=== PATIENT | female | born 1990 | race Caucasian/White ===

== ENCOUNTER → 2023-10-20 20:21 | Outpatient (REF) | payer BC, SELFPAY | LOC: MRI 3T 20:21 | PROVIDERS: ATTENDING PHYSICIAN Chiropractor; FAMILY PHYSICIAN Family Medicine | DX: S83.242A Other tear of medial meniscus, current injury, left knee, initial encounter (principal) | CPT/HCPCS: 73721 ==

== ENCOUNTER 2023-12-04 06:19 | Day surgery (SDC) | payer BC, SELFPAY ==
[2023-12-04] VITALS (10 sets, daily range): BP systolic 110–119; BP diastolic 55–71; BMI 28.7
[2023-12-04] MEDS: TYLENOL 1000 MG PO (11:40)
[2023-12-04] MEDS: CELEBREX 200 MG PO (11:40)
[2023-12-04] MEDS: NORMOSOL-R 1000 IV (11:43)
[2023-12-04] MEDS: DILAUDID 0.25 MG IV (14:20)
== END 2023-12-04 15:43 | disposition home or self-care (01) ==
LOC: SDS 06:19
PROVIDERS: ATTENDING PHYSICIAN Orthopaedic Surgery; FAMILY PHYSICIAN Family Medicine
DX: M23.42 Loose body in knee, left knee (principal); M17.12 Unilateral primary osteoarthritis, left knee
CPT/HCPCS: 29877

== ENCOUNTER → 2025-08-01 12:26 | Outpatient (REF) | payer BC, SELFPAY | LOC: HWRAD 12:26 | PROVIDERS: ATTENDING PHYSICIAN Internal Medicine Rheumatology; FAMILY PHYSICIAN Family Medicine | DX: M25.561 Pain in right knee (principal); M25.562 Pain in left knee; M17.10 Unilateral primary osteoarthritis, unspecified knee | CPT/HCPCS: 73560; 73565 ==